=== PATIENT | male | born 1945 | race Caucasian/White ===

== ENCOUNTER → 2017-08-08 10:27 | Outpatient (CLI) | payer MEDICARE, OTHER | END | disposition home or self-care (01) | LOC: D.RT 10:27 | DX: R05 Cough (principal) ==

== ENCOUNTER → 2017-08-08 10:54 | Outpatient (CLI) | payer MEDICARE, OTHER ==
[2017-08-08 13:35] LABS: BASOPHILS 0.7 % (0-2); EOSINOPHILS 5.1 % (0-7); HEMATOCRIT 40.3 % (42.0-54.0); HEMOGLOBIN 13.8 g/dL (13.5-17.5); IMMATURE GRANULOCYTES 0.1 % (0-5); LYMPHOCYTES 21.8 % (15-50); MCH 29.9 pg (26.0-34.0); MCHC 34.2 g/dL (31.0-37.0); MCV 87.2 fL (80.0-100.0); MEAN PLATELET VOLUME 10.6 fL (7.4-10.4); MONOCYTES 7.2 % (2-11); NEUTROPHILS 65.1 % (40-80); PLATELET COUNT 145 10x3/uL (130-400); RBC 4.62 10x6/uL (4.20-6.10); RDW 15.9 % (11.5-14.5); WBC 7.5 10x3/uL (4.8-10.8)
[2017-08-09 08:14] LABS: IMMUNOGLOBULIN A 468 mg/dL (61-437); IMMUNOGLOBULIN G 1641 mg/dL (700-1600)
[2017-08-13 20:09] LABS: IMMUNOGLOBULIN E 107 IU/mL (0-100)
== END | disposition home or self-care (01) ==
LOC: D.LABREF 10:54
PROVIDERS: Internal Medicine Pulmonary Disease
DX: J45.991 Cough variant asthma (principal)